=== PATIENT | female | born 2000 | race Caucasian/White ===

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

== ENCOUNTER 2022-08-17 11:31 | Outpatient (CLI) | payer MEDICAID, SELFPAY | END 2022-08-17 11:32 | disposition home or self-care (01) | LOC: LBO 11:31 | PROVIDERS: PCP Nurse Practitioner Pediatrics | DX: F41.9 Anxiety disorder, unspecified (principal) | CPT/HCPCS: 36415; 80053; 80061; 82728; 83036; 84439; 84443; 85025 ==

== ENCOUNTER 2022-11-27 15:09 | Outpatient (CLI) | payer MEDICAID, SELFPAY | END 2022-11-27 15:10 | disposition home or self-care (01) | LOC: LBO 15:10 | DX: R21 Rash and other nonspecific skin eruption (principal); R53.83 Other fatigue; A69.20 Lyme disease, unspecified | CPT/HCPCS: 36415; 86617; 87798; 86618 ==

== ENCOUNTER 2023-04-12 16:28 | Outpatient (REF) | payer BC, SELFPAY ==
[2023-04-16 13:06] LABS: Lamotrigine <0.2 mcg/mL (3.0-15.0)
== END 2023-04-12 16:29 | disposition home or self-care (01) ==
LOC: NCHCN 16:28
PROVIDERS: Visit Provider Nurse Practitioner Family
DX: F41.9 Anxiety disorder, unspecified (principal)
CPT/HCPCS: 80175

== ENCOUNTER 2023-10-03 13:43 | Outpatient (REF) | payer BC, SELFPAY ==
[2023-10-03 16:47] LABS: Ferritin 76 ng/mL (8-252); TSH 2.87 uIU/Ml (0.36-3.74); Vitamin B12 1193 pg/mL (193-986)
[2023-10-03 16:48] LABS: Folate > 20.0 ng/mL (8.6-20.0)
[2023-10-03 17:44] LABS: Vitamin D 25 Total 11.7 ng/mL (30-100)
== END 2023-10-03 13:44 | disposition home or self-care (01) ==
LOC: NCHCN 13:43
PROVIDERS: Visit Provider Nurse Practitioner Family
DX: F41.8 Other specified anxiety disorders (principal); Z79.899 Other long term (current) drug therapy; E55.9 Vitamin D deficiency, unspecified; R79.89 Other specified abnormal findings of blood chemistry
CPT/HCPCS: 82306; 82607; 82728; 82746; 84443

== ENCOUNTER 2024-07-10 12:09 | Outpatient (REF) | payer BC, SELFPAY ==
--- NOTE | 2024-07-10 11:00 | PAPFT_PTH ---
PATIENT: Ang Gentile LOC: [facility] U#:[id number] AGE/SX: 24/F ROOM: RE07/10/[address]: Yokasta Morales : 2000 BED: DIS: 07/10/2024 SPEC #: [id number] RECD: 07/10/24 16:41 STATUS: MORIAH FERNANDEZ #: [id number] KARAN: 07/10/24 11:[address]: Yokasta Morales DEPT: [facility] Cytology RECD BY: Marbella Reyes Tissues: 1 - CX/ENDOCX FOR PAP SMEARS Procedures: PAP THIN PREP/UVM Screening Comments: [id number]
== END 2024-07-10 12:10 | disposition home or self-care (01) ==
LOC: NCHCN 12:09
PROVIDERS: Visit Provider Nurse Practitioner Family
DX: Z12.4 Encounter for screening for malignant neoplasm of cervix (principal)
CPT/HCPCS: 88142